=== PATIENT | male | born 1955 | race Caucasian/White ===

== ENCOUNTER 2025-01-12 16:06 | Emergency (ER) | payer MEDICARE, OTHER, SELFPAY ==
[2025-01-12 16:10] VITALS: BP 132/83
[2025-01-12 17:02] LABS: Hematocrit 39.7 % (39.0-52.0); Hemoglobin 13.7 g/dL (13.0-18.0); Mean Corp Hgb Conc. 34.5 g/dL (33.0-37.0); Mean Corpuscular Volume 85.4 fL (80.0-94.0); Nucleated Red Blood Cells % 0 % (-); Platelet Count 180 10^3/uL (130-400); Red Cell Dist. Width 12.6 % (11.5-14.5)
[2025-01-12 17:31] LABS: ALT (SGPT) 23 U/L (0-50); AST (SGOT) 19 U/L (17-59); Albumin 4.6 g/dl (3.5-5.0); Alkaline Phosphatase 87 U/L (38-126); Blood Urea Nitrogen 14 mg/dl (9-20); Calcium 9.7 mg/dl (8.4-10.2); Carbon Dioxide 25 mmol/L (22-30); Chloride 103 mmol/L (98-107); Glucose 135 mg/dl (70-99); Lipase 50 U/L (23-300); Potassium 4.2 mmol/L (3.5-5.1); Sodium 138 mmol/L (135-145); Total Protein 6.9 g/dl (6.3-8.2); eGFR > 60.00
[2025-01-12 19:00] VITALS: BP 133/64
[2025-01-12 19:40] VITALS: BP 133/64
--- NOTE | 2025-01-12 20:48 | ED.GENMED ---
History of Present Illness
General
Chief Complaint: Abdominal Pain
Source: patient
Exam Limitations: none
Time Seen by Provider: 01/12/25 19:49
Nursing documentation reviewed up to this point in time: agreed with
History of Present Illness
History of Present Illness:
Patient is a 69-year-old male with history kidney stones who presents to the emergency department for evaluation of lower abdominal cramping. He states that he initially noticed symptoms on Sunday morning after eating [employer] cereal. He
describes a cramping sensation in his lower abdomen which has been intermittent although exacerbated with any eating or when attempting to have a bowel movement.
He initially thought he may have contracted food poisoning from his cereal however symptoms have persisted, and potentially worsened over the past few days. He has had some mild nausea and constipation. However that she denies any fever, chills,
or vomiting. He denies any urinary symptoms.
He has had a very little appetite over the past few days and is only eating soup and cereal.
He does have a history of diverticulitis which occurred about 1 year ago and was treated with ciprofloxacin/Flagyl. He states symptoms improved after only a few days and he stopped his antibiotics. He does have a GI doctor that he follows with at
[place].
Review of Systems
Review of Systems
Allergies reviewed?: Yes
All Other Systems: ROS reviewed and negative except as documented in HPI and ROS
Phy Exam
Physical Exam
Physical Exam:
Vitals: Mildly tachycardic on arrival, improved by my assessment. Afebrile
General: Patient is well appearing, no acute distress
Skin: Warm and dry, no rashes or lesions
Head: Normocephalic, atraumatic
Eyes: Sclera nonicteric.
Throat: Protecting airway
Neck: Normal ROM, no cervical spine tenderness, no meningismus
Cardiac: Regular rate and rhythm, no murmurs.
Pulm: Normal respiratory effort, no wheezes, rales, rhonchi heard on exam
Abdomen: Abdomen soft. Mild tenderness in suprapubic/left lower quadrant without rebound tenderness or guarding. No focal tenderness McBurney's point.
Extremities: No evidence of cyanosis or edema
Neuro: AAOx3. Grossly intact.
Psychiatric: Normal affect.
Course
Orders/Labs/Results
Orders:
Orders
01/12/25 16:21
Complete Blood Count/With Diff Urgent
Comprehensive Metabolic Panel Urgent
Lipase Urgent
01/12/25 20:15
CT Abd/pelvis W Iv Cont Urgent
Comment:
Reason For Exam: LLq pain
01/12/25 21:06
Urinalysis Reflex To Culture Urgent
Date Specimen was Collected: 01/12/25
Time Specimen was Collected: 21:06
Urine Microscopic Reflex Cult Urgent
Urine Culture Urgent
LENNOX Source: U
Specimen Description:
Date Specimen was Collected: 01/12/25
Time Specimen was Collected: 21:06
01/12/25 21:34
Ondansetron Injectable [Zofran] 4 mg .ROUTE .STK-MED ONE
01/12/25 21:37
Ondansetron Injectable [Zofran] 4 mg IV NOW STA
01/12/25 22:54
Amoxicillin 875 mg/Clav 125 mg [Augmentin 875 mg/125 mg] 1 tablet PO NOW STA
Abnormal Lab Results
01/12/25 01/12/25
16:21 21:06
WBC 13.1 H 10^3/uL
(4.8-10.8)
RBC 4.65 L 10^6/uL
(4.70-6.10)
MPV 11.4 H fL
(7.4-10.4)
Abs Immat Gran (auto) 0.1 H 10^3/uL
(0-0.05)
Absolute Neuts (auto) 9.2 H 10^3/uL
(1.4-6.5)
Absolute Monos (auto) 1.5 H 10^3/uL
(0.1-0.6)
Lymphocytes % 16.6 L %
(20.5-51.1)
Monocytes % 11.6 H %
(1.7-9.3)
Glucose 135 H mg/dl
(70-99)
Urine Ketones 1+ A
(Negative)
Leukocyte Esterase Rfl 1+ A
(Negative)
Urine Bacteria (Reflex) Moderate A
(Negative)
Urine Glucose 3+ A
(Negative)
Urine Albumin (Reflex) 1+ A
(Neg - Trace)
01/12/25 16:21
01/12/25 16:21
Vital Signs
Initial and Last Documented VS:
Initial Vital Signs
Temp Pulse Resp BP Pulse Ox
98 F 109 20 132/83 97
01/12/25 16:10 01/12/25 16:10 01/12/25 16:10 01/12/25 16:10 01/12/25 16:10
Last Documented Vital Signs
Temp Pulse Resp BP Pulse Ox
98.6 F 75 18 127/68 97
01/12/25 22:51 01/12/25 22:51 01/12/25 22:51 01/12/25 22:51 01/12/25 22:51
MDM/Problems Addressed
Differential Diagnosis Includes:
Not limited to: Diverticulitis, colitis, gastroenteritis, pyelonephritis, renal colic, constipation, etc.
MDM/Problems Addressed:
69-year-old male presenting with four days of lower abdominal cramping as well as constipation and mild nausea. No vomiting, fever, or urinary symptoms. Vitals and exam as above. Differential broad and includes diverticulitis, colitis,
constipation/fecal impaction, UTI, etc.
ED plan: labs, CT scan abdomen/pelvis, UA. Patient declines any analgesia.
Update: labs reviewed. Mild leukocytosis of 13.1. Otherwise no clinically significant abnormalities. CT scan reveals findings of acute uncomplicated sigmoid diverticulitis. No evidence of perforation or abscess.
Ultimately � given patient afebrile, tolerating PO intake and without evidence of complications on imaging � feel stable for discharge home on oral antibiotic tx. Will send 10 day course of Augmentin and advise clear liquid diet followed by low
fiber. Strict return precaution discussed. He will follow with his G.I. doctor. Patient and patient�s comfortable with plan.
Chronic conditions affecting care:
Diverticulosis
Acute Exacerbation and/or Progression of Chronic Illness:
Acute diverticulitis
*Radiology
Radiology exam reviewed: radiology read reviewed
*Pulse Oximetry
SaO2: 98
Oxygen Mode of Delivery: Room air
Patient hypoxic: no
*EKG
Interpreted by ED Provider?: NA
*Sweatband Shaper Interpretation
Rate: Sweatband Shaper- N/A
*Critical Care Note
Total Time (30-74mins, 75-104mins- exclusive of procedures): Not Applicable
ED Attending Note
-
Portions of this chart may have been created with voice recognition software.� Occasional wrong word or��sound alike� substitutions may have occurred due to the inherent limitations of voice recognition software.
Discharge Plan
Departure
Patient Disposition: Home (Routine Discharge)
Date of Disposition: 01/12/25
Time of Disposition: 22:56
Patient with high blood pressure during this ER visit?: Yes
Discharge Problem:
Acute diverticulitis
Instructions: Clear Liquid Diet, Diverticulitis (DC), Low-fiber diet
Prescriptions:
New
amoxicillin-pot clavulanate 875-125 mg tablet
1 tab PO BID 10 Days Qty: 20 0RF
Referrals:
Vance Dennis MD [Family Provider, Internal Medicine] - Follow up in 1 week
Activity Restrictions/Additional Instructions:
RETURN TO THE EMERGENCY DEPARTMENT ANY FEVER, CHILLS, VOMITING, WORSENING ABDOMINAL PAIN, SIGNS OF WORSENING INFECTION, OR ANY OTHER CONCERNS
- As discussed�your-CT scan showed evidence of acute diverticulitis. Your white blood cell count was mildly elevated.
- A prescription for oral antibiotics has been sent to your pharmacy. Please take this twice a day for the next 10 days. It is very important you complete this course of antibiotics.
- I would recommend a clear liquid diet over the next few days and slowly advancing as tolerated to low fiber. It is important to stay well-hydrated. Take Tylenol as needed for pain.
- Follow-up with primary care and your GI doctor for further evaluation/management and to ensure that your symptoms are improving
Monitor your symptoms closely and return to the emergency department with any acute worsening/new symptoms or any other concerns
Interventions
Interventions:
*Risk Screen - Suicide Last Done: 01/12/25 16:14
*General Assessment Last Done: 01/12/25 16:14
*Neglect/Abuse Screening Last Done: 01/12/25 16:14
*ED COVID-19 Vaccine History Last Done: 01/12/25 16:14
*Nursing Disposition Last Done: 01/12/25 23:17
EG-Ygiqlu-Mokteqrfil Assessment Last Done: 01/12/25 21:18
Discharge Date and Time
Discharge Date/Time: 01/12/25 23:18
Print Language: [id number]
[2025-01-12 21:13] LABS: Urine Character Clear (Clear)
[2025-01-12 21:23] LABS: Urine Squamous Cell 16-20 /LPF (Few)
[2025-01-12 21:24] LABS: Urine Red Blood Cell 0-2 /HPF (0-2)
[2025-01-12] MEDS: ZOFRAN 4 MG IV (21:37)
[2025-01-12 22:51] VITALS: BP 127/68
[2025-01-12] MEDS: AUGMENTIN 875 MG/125 MG 1 TABLET PO (23:10)
== END 2025-01-12 23:18 | disposition home or self-care (01) ==
LOC: EMR 16:06
PROVIDERS: Emergency Medicine; Physician Assistant; EMERGENCY PHYSICIAN Emergency Medicine; FAMILY PHYSICIAN Internal Medicine
DX: K57.32 Diverticulitis of large intestine without perforation or abscess without bleeding (principal); R03.0 Elevated blood-pressure reading, without diagnosis of hypertension
CPT/HCPCS: 99284; 96374; 74177; 80053; 81003; 81015; 83690; 85025; 87086; Q9967